=== PATIENT | female | born 1970 | race Asian ===

== ENCOUNTER 2018-11-10 05:22 | Day surgery (SDC) | payer OTHER ==
[2018-11-10] MEDS ORDERED: ROCURONIUM 50 MG INJ (07:21)
[2018-11-10] MEDS ORDERED: GLYCOPYRROLATE 0.4 MG INJ (07:21)
[2018-11-10] MEDS ORDERED: CEFAZOLIN 1 GM INJ (07:21)
[2018-11-10] MEDS ORDERED: PROPOFOL 20 ML (07:21)
[2018-11-10] MEDS ORDERED: MIDAZOLAM 1 MG/ML 2 ML INJ (07:22)
[2018-11-10] MEDS ORDERED: FENTAnyl 50 MCG/ML VIAL (07:22)
[2018-11-10] MEDS ORDERED: ONDANSETRON 4 MG INJ (07:23)
[2018-11-10] MEDS ORDERED: DEXAMETHASONE 4 MG/ML 5 ML INJ (07:23)
[2018-11-10] MEDS ORDERED: IPRATROPIUM (NEB) 0.5 MG/2.5 ML AMP HHN (07:30)
[2018-11-10] MEDS ORDERED: ALBUTEROL 0.083% (NEB) 2.5 MG/3 ML AMP HHN (07:30)
[2018-11-10] MEDS ORDERED: HYDROmorphONE 1 MG/5 ML IV SYRINGE IV ×2 (07:30)
[2018-11-10] MEDS ORDERED: hydrALAzine 20 MG INJ IV (07:30)
[2018-11-10] MEDS ORDERED: LABETALOL HCL 20MG INJ IV (07:30)
[2018-11-10] MEDS ORDERED: TRIMETHOBENZAMIDE 100 MG/ML VIAL IM (07:30)
[2018-11-10] MEDS ORDERED: FENTAnyl 50 MCG/ML VIAL IV ×3 (07:30)
[2018-11-10] MEDS ORDERED: EPHEDrine SULFATE 50 MG/5 ML SYG IV (07:30)
[2018-11-10] MEDS ORDERED: ONDANSETRON 4 MG INJ IV (07:30)
[2018-11-10] MEDS ORDERED: OXYCODONE/ACETAMINOPHEN (5/325) TAB PO ×2 (07:30)
[2018-11-10] MEDS ORDERED: MEPERIDINE 25 MG INJ IV (07:30)
[2018-11-10] MEDS ORDERED: DIPHENHYDRAMINE 50 MG INJ IV (07:30)
[2018-11-10] MEDS ORDERED: MIDAZOLAM 1 MG/ML 2 ML INJ IV (07:30)
[2018-11-10] MEDS: HYDROmorphONE 1 MG/5 ML IV SYRINGE IV (08:05)
[2018-11-10] MEDS ORDERED: ACETAMINOPHEN 325 MG TAB PO (09:00)
== END 2018-11-10 09:24 | disposition home or self-care (01) ==
LOC: SDS 05:22
DX: D25.9 Leiomyoma of uterus, unspecified (principal); R93.89 Abnormal findings on diagnostic imaging of other specified body structures; I10 Essential (primary) hypertension; E55.9 Vitamin D deficiency, unspecified; F17.200 Nicotine dependence, unspecified, uncomplicated
CPT/HCPCS: 58558; 84703; 86850; 86900; 86901; 88305